=== PATIENT | female | born 1955 | race Caucasian/White ===

== ENCOUNTER → 2018-04-20 | Outpatient (CLI) | payer OTHER ==
[~2018-04-20] VITALS: Ht 160 cm; Wt 62.7 kg
[~2018-04-20] MED LIST: ALEVE220 M2 PO; PROTONIX40 MG PO
== END | disposition home or self-care (01) ==
LOC: AMB 03-17 14:00
PROC: 0DB28ZX Excision of Middle Esophagus, Via Natural or Artificial Opening Endoscopic, Diagnostic (ICD-10-PCS; principal; 2018-04-20)
DX: C15.4 Malignant neoplasm of middle third of esophagus (principal); K44.9 Diaphragmatic hernia without obstruction or gangrene; R13.10 Dysphagia, unspecified; I10 Essential (primary) hypertension; F17.200 Nicotine dependence, unspecified, uncomplicated
CPT/HCPCS: 88305; 88341 TC; 88342 TC; J2250; J7643